=== PATIENT | male | born 1980 | race American Indian/Alaskan Native ===

== ENCOUNTER 2018-10-02 10:00 | Outpatient (CLI) | payer OTHER | END 2018-10-02 10:01 | disposition home or self-care (01) | LOC: C.MRIC 10:00 | DX: S79.912A Unspecified injury of left hip, initial encounter (principal) ==

== ENCOUNTER 2018-10-06 08:48 | Outpatient (CLI) | payer OTHER | END 2018-10-06 08:49 | disposition home or self-care (01) | LOC: C.CTH 08:48 | DX: M25.552 Pain in left hip (principal) ==